=== PATIENT | female | born 2000 | race Two or more races ===

== ENCOUNTER 2024-09-08 17:03 | Emergency (ER) | payer MEDICAID, SELFPAY ==
[2024-09-08 17:13] VITALS: BP 128/63; PULSE 86; RESP 16; TEMP 36.8; O2SAT 96; BMI 24.2
--- NOTE | 2024-09-08 17:21 | XR_ITS ---
Examination: CT brain head without contrast. 2-D sagittal coronal reconstructions Date and time of exam:September 08, 2024 1821 hrs. Indications: Onset headache dizziness beginning 5 days ago CTDI: vol (mGy):48.5 DLP: (mGycm):962 Technique: Multiple CT axial sections of the brain have been obtained, 5 mm slice thickness. Contrast has not been administered. 2-D sagittal, coronal reconstructions have been obtained Low dose protocols were performed. One or more of the following dose reduction techniques were used; automated exposure control, adjustment of the mA and/or KV according to patient size, use of iterative reconstruction technique. Findings: No significant ventricular enlargement. Intra-axial or extra-axial hemorrhage density is not seen. No mass effect or midline shift Basal cisterns are not remarkable. Fourth ventricle is midline. Cranial vault intact. Impression: Negative for acute hemorrhage, mass effect or midline shift Advise clinical correlation and follow-up accordingly
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
[2024-09-08 20:10] VITALS: BP 116/76; PULSE 78; RESP 18; TEMP 36.7; O2SAT 98
== END 2024-09-08 20:10 | disposition home or self-care (01) ==
PROVIDERS: Emergency Provider Emergency Medicine; PCP Family Medicine
DX: R51.9 Headache, unspecified (principal)
CPT/HCPCS: 70450; 99284

== ENCOUNTER 2024-09-12 20:22 | Emergency (ER) | payer OTHER, SELFPAY ==
[2024-09-12 20:23] VITALS: BMI 24.0
[2024-09-12 20:39] VITALS: BP 136/91; PULSE 75; RESP 16; TEMP 36.9; O2SAT 99
--- NOTE | 2024-09-12 20:54 | EDNOTE_ITS ---
<Statement entered by Fara Butterfield MD - 09/12/24 23:41> As co-signing physician, I was present and available for consult prn. I concur with the plan and care as documented by the midlevel provider. ED Wound/Laceration-RME/HPI General Chief Complaint: Wound/Laceration Stated Complaint: Lac to Left 1st digit at work Time Seen by Provider: 09/12/24 20:51 Arrival date/time: 09/12/24 20:22 RME / HPI RME / HPI narrative: 23-year-old female patient came in for evaluation regarding laceration to the left thumb palmar aspect incident happened earlier today while at work accidentally cut herself with a knife resulting to her 1 cm gaping laceration, left thumb palmar aspect. Able to bend and extend the finger without any limitation. Tetanus vaccination is up-to-date Related Data Previous Rx's ?Medication ?Instructions ?Recorded ibuprofen 600 mg tablet 600 mg PO Q8H PRN pain #30 t abs 09/12/24 Allergies Allergy/AdvReac Type Severity Reaction Status Date / Time NKA* Allergy Uncoded 09/08/24 17:07 Review of Systems Review of Systems Narrative Review of Systems: Review of system reviewed and within normal limits except mentioned in HPI ED Exam Narrative Physical exam: VITAL SIGNS: Reviewed. GENERAL APPEARANCE: Alert and interactive, follows commands, no acute distress, HEAD AND FACE: Non-traumatic. ENT: PERRL, pink conjunctivitis, eyelid no trauma, Mucous membrane moist. NECK: Supple, nontender, no nuchal rigidity. RECTAL: Deferred. GENITAL: Deferred. NEUROLOGICAL: Gross motor function intact sensory function intact, Appropriate for age. MUSCULOSKELETAL: low back nontender, full range of motion. EXTREMITIES: 1 cm gaping laceration, left thumb palmar aspect, full range of motion. SKIN: Color pink, dry, no rash, no lacerations, no abrasions, no contusions. LYMPHATICS: Deferred. Course Quality Measures none Orders Category Date Time Status Set Up Suture Tray STAT Care 09/12/24 20:51 Active Wound Care NOW Care 09/12/24 20:51 Active Tet,Diphth,Pertuss(Acell)-Tdap [Boostrix Vacc] Med 09/12/24 20:51 Discontinued 0.5 ml IMI .ONCE ONE Vital Signs Vital signs: Vital Signs Temperature 98.5 F 09/12/24 20:39 Pulse Rate 75 09/12/24 20:39 Respiratory Rate 16 09/12/24 20:39 Blood Pressure 136/91 H 09/12/24 20:39 Pulse Oximetry (%) 99 09/12/24 20:39 Oxygen Delivery Method Room Air 09/12/24 20:39 Procedures -ED Laceration Laceration 1: Site: other (Left thumb) Size (cm): 1 Description: linear Depth: simple, single layer Local Anesthetic: lidocaine 1% Amount of anesthesia used (mL): 2 Pre-repair: wound explored and irrigated extensively Skin layer closed with: nylon Size (cm): 5-0 Number of sutures: 3 Technique: simple, interrupted Wound / Laceration MDM Narrative MDM Narrative:: 23-year-old female patient came in for evaluation regarding laceration to the left thumb palmar aspect incident happened earlier today while at work accidentally cut herself with a knife resulting to her 1 cm gaping laceration, left thumb palmar aspect. Able to bend and extend the finger without any limitation. Tetanus vaccination is up-to-date Repair and suturing was advised see procedure note Patient data External records reviewed:: None Clinical information provided by:: patient Social determinants that could affect healthcare access:: none Patient has the following chronic illnesses:: None How is presenting disease/condition affected by chronic disease/condition?: no chronic disease Evaluation data The following diagnostics were reviewed and interpreted by me:: other (specify) (none) Lab and/or radiology exams considered but not ordered:: none Interpretation Summary: osbaldo Medications / Prescriptions Medications or Prescriptions considered but not ordered:: None Medication administrations:: Medication Administration History Discontinued Medications Diphtheria/Tetanus/Acell Pertussis (Diphth,Pertuss(Acell),Tet Vac 0.5 Ml Syr) 0.5 ml IMi .ONCE ONE Stop: 09/12/24 20:52 Tdap Consultations Consultation(s) initiated? (list below): No Diagnosis Wound Differential Diagnosis: laceration, abrasion and avulsion of skin Most likely diagnosis given after review of the tests above:: Finger laceration Admission Indicated Admission indicated?: not indicated Admission Request Was there a request for admission?: No Disposition Plan Disposition Plan: Discharge Discharge Attestation Discharge Attestation: The patient was given an opportunity to ask questions and understood the discharge instructions. Discharge instructions specifically effects, indications for sooner follow up or return to the emergency department, and the expected course of current diagnosis. Patient condition: Stable Discharge Plan Plan Patient Disposition: HOME (Self Care) Disposition Comment: stable Prescriptions/Referrals Prescriptions/Med Rec: New ibuprofen 600 mg tablet 600 mg PO Q8H PRN (Reason: pain) Qty: 30 0RF Problem List Clinical Impression: Finger laceration Patient/Caregiver Discharge Instructions Discharge Activity: activity as tolerated Education Materials: ED Laceration: All Closures Additional Instructions: Thank you for the opportunity for serving you today. You are stable for discharged . 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
[2024-09-12] MEDS: DIPHTH,PERTUSS(ACELL),TET VAC 0.5 ML SYR IMi (21:22)
== END 2024-09-12 21:39 | disposition home or self-care (01) ==
LOC: SERX 21:46
PROVIDERS: Emergency Provider Emergency Medicine
DX: S61.012A Laceration without foreign body of left thumb without damage to nail, initial encounter (principal); Z23 Encounter for immunization; W26.0XXA Contact with knife, initial encounter; Y93.89 Activity, other specified; Y99.0 Civilian activity done for income or pay
CPT/HCPCS: 12001; 90471; 90715; 99283

== ENCOUNTER 2024-09-20 14:49 | Emergency (ER) | payer MEDICAID, SELFPAY ==
[2024-09-20 14:50] VITALS: BMI 24.0
[2024-09-20 15:06] VITALS: BP 126/84; PULSE 93; RESP 16; TEMP 36.9; O2SAT 99
--- NOTE | 2024-09-20 15:11 | EDNOTE_ITS ---
ED General RME/HPI General Chief complaint: General Adult/Misc Complain Stated complaint: L) THUMB STITCH REMOVAL Time Seen by Provider: 09/20/24 15:09 Arrival date/time: 09/20/24 14:49 23 year old female present to emergency room with c/o of left thumb suture removal. pt report had suture placed 1 week ago. typically 10-14 days when suture can be taken out. LOCATION: thumb SEVERITY: Symptoms are described as being severe with limitations on activities of daily living QUALITY: Symptoms are described as being dull or achy DURATION/TIMING: The symptoms started approximately 7 days ago . ASSOCIATED SYMPTOMS: The patient is unable to identify any other associated symptoms. MODIFYING FACTORS: The patient is unable to identify any alleviating or aggravating symptoms. PERTINENT ROS: no fevers, no headache, no neck or chest pain, no unexplained nausea or vomiting, no focal neurological deficits REVIEW OF SYSTEMS: See History of Present Illness - with the exception of those mentioned in the history of present illness, all other systems reviewed and reported as negative GENERAL: In general the patient is awake, interactive, in an emergency department gurney. HEAD/EYES/EARS/NOSE/THROAT: normo-cephalic, atraumatic, mucus membranes are moist, anicteric, palpebral conjunctiva is pink, trachea is midline. BACK: normal range of motion without pain. NEUROLOGICAL: cranio-facial features are symmetric, moves all four extremities equally without obvious limitations or weakness. EXTREMITY: left distal thumb 3 intact suture, no sign of infection or discharge. no tenderness to palpation over the long bones or large joints of the bilateral upper and lower extremities, no joint swelling, no joint erythema, no signs of trauma, no unilateral leg swelling and no peripheral edema. SKIN: warm, dry, well-perfused, no jaundice, no rash, no telangiectasias or petechia. PSYCH: calm, cooperative, no evidence of psychosis or agitation Related Data Previous Rx's ?Medication ?Instructions ?Recorded ibuprofen 600 mg tablet 600 mg PO Q8H PRN pain #30 t abs 09/12/24 Allergies Allergy/AdvReac Type Severity Reaction Status Date / Time NKA* Allergy Uncoded 09/20/24 14:52 Course Course Course Narrative: advised pt to return in 4 days for suture removal removing now can cause the wound to re open. Quality Measures none Vital Signs Vital signs: Vital Signs Temperature 98.5 F 09/20/24 15:06 Pulse Rate 93 09/20/24 15:06 Respiratory Rate 16 09/20/24 15:06 Blood Pressure 126/84 09/20/24 15:06 Pulse Oximetry (%) 99 09/20/24 15:06 Oxygen Delivery Method Room Air 09/20/24 15:06 [facility] Patient data External records reviewed:: None Clinical information provided by:: patient Social determinants that could affect healthcare access:: none Patient has the following chronic illnesses:: none How is presenting disease/condition affected by chronic disease/condition?: no chronic disease Evaluation data The following diagnostics were reviewed and interpreted by me:: other (specify) (none ) Lab and/or radiology exams considered but not ordered:: n/a Interpretation Summary: n/a Medications Medications considered but not ordered:: n/a Medication administrations:: n/a Consultations Consultation(s) initiated? (list below): No Diagnosis Differential Diagnosis ED Complaint MDM: wound check Most likely diagnosis given after review of the tests above:: wound check Admission Indicated Admission indicated?: not indicated Explain why admission is indicated or not indicated:: n/a Admission Request Was there a request for admission?: No Disposition Plan Disposition Plan: Discharge Discharge Attestation Discharge Attestation: The patient and all family members were given an opportunity to ask questions and understood the discharge instructions. Discharge instructions specifically effects, indications for sooner follow up or return to the emergency department, and the expected course of current diagnosis. Patient condition: Stable Medical Decision Making Differential Diagnosis Differential Diagnosis: wound check Discharge Plan Plan Patient Disposition: HOME (Self Care) Health Concerns: return to ED in 4 days for suture removal. Prescriptions/Referrals Prescriptions/Med Rec: No Action ibuprofen 600 mg tablet 600 mg PO Q8H PRN (Reason: pain) Qty: 30 0RF Problem List Clinical Impression: Encounter for wound re-check Patient/Caregiver Discharge Instructions Education Materials: ED Wound Care Print Language: Citizen Of [place] Stand Alone Forms: [employer] Award Info., Patient Portal Info Letter
== END 2024-09-20 15:15 | disposition home or self-care (01) ==
LOC: SERX 15:15
PROVIDERS: Emergency Provider Emergency Medicine; PCP Family Medicine
DX: Z48.02 Encounter for removal of sutures (principal)
CPT/HCPCS: 99281

== ENCOUNTER 2024-10-04 15:05 | Emergency (ER) | payer MEDICAID, SELFPAY ==
--- NOTE | 2024-10-04 15:35 | PD.EDWOUND ---
ED Wound/Laceration-RME/HPI General Chief Complaint: Wound Recheck / Suture Removal Stated Complaint: SURTURE REMOVAL TO FINGER Time Seen by Provider: 10/04/24 15:06 Source: patient Arrival date/time: 10/04/24 15:05 23-year-old female with no known medical history presents to the emergency room with a chief complaint of suture removal to her laceration in her finger that occurred 2 weeks ago. Mode of arrival: ambulatory Limitations: no limitations Related Data Previous Rx's ?Medication ?Instructions ?Recorded ibuprofen 600 mg tablet 600 mg PO Q8H PRN pain #30 tabs 09/12/24 Allergies Allergy/AdvReac Type Severity Reaction Status Date / Time NKA* Allergy Uncoded 10/04/24 15:06 Past Medical History Social History SMOKING STATUS: Never smoker ED Exam General Limitations: Present no limitations General appearance: Present alert and in no apparent distress Head Head exam: Present atraumatic Eye Eye exam: Present normal appearance, PERRL and EOMI ENT ENT exam: Present normal exam, normal oropharynx and mucous membranes moist Neck Neck exam: Present normal inspection, full ROM and trachea midline Chest Chest inspection: Present normal inspection and symmetric chest wall rise Respiratory Respiratory exam: Present normal lung sounds bilaterally Cardiovascular Cardiovascular exam: Present regular rate, normal rhythm and normal heart sounds Abdominal Exam Abdominal exam: Present soft and normal bowel sounds Extremities Exam Extremities exam: Present normal inspection and full ROM Back Exam Back exam: Present normal inspection and full ROM Neurological Exam Neurological exam: Present alert, oriented X3 and CN II-XII intact Psychiatric Psychiatric exam: Present normal affect and normal mood Skin Skin exam: Present warm, dry, intact and normal color Course Quality Measures none Orders Category Date Time Status Suture / Staple Removal NOW Care 10/04/24 15:12 Active Wound / Laceration MDM Narrative MDM Narrative:: 23-year-old female with no known medical history presents to the emergency room with a chief complaint of suture removal to her laceration in her finger that occurred 2 weeks ago. Patient is hemodynamically stable and in no apparent distress 3 sutures were removed from the patient's left thumb. There were no signs of infection, there is no warmth to the area, no discharge. 3 sutures were removed in its entirety with no complications Patient was discharged and educated to follow-up with primary care provider in the next 24 to 48 hours and return to the emergency room for any evidence of worsening signs or symptoms Patient data External records reviewed:: [facility] previous records Clinical information provided by:: patient Social determinants that could affect healthcare access:: none Patient has the following chronic illnesses:: No chronic illness How is presenting disease/condition affected by chronic disease/condition?: no chronic disease Evaluation data The following diagnostics were reviewed and interpreted by me:: lab results and radiology exam(s) Lab and/or radiology exams considered but not ordered:: Labs and radiology exams considered and ordered Interpretation Summary: N/A Medications / Prescriptions Medications or Prescriptions considered but not ordered:: Medication not given Medication administrations:: Medication not given Consultations Consultation(s) initiated? (list below): No Diagnosis Wound Differential Diagnosis: other (Suture removal/infected suture removal) Most likely diagnosis given after review of the tests above:: Suture removal Admission Indicated Admission indicated?: not indicated Admission Request Was there a request for admission?: No Disposition Plan Disposition Plan: Discharge Discharge Attestation Discharge Attestation: The patient and all family members were given an opportunity to ask questions and understood the discharge instructions. Discharge instructions specifically effects, indications for sooner follow up or return to the emergency department, and the expected course of current diagnosis. Patient condition: Stable Discharge Plan Plan Patient Disposition: HOME (Self Care) Disposition Comment: Stable Prescriptions/Referrals Prescriptions/Med Rec: No Action ibuprofen 600 mg tablet 600 mg PO Q8H PRN (Reason: pain) Qty: 30 0RF Problem List Clinical Impression: Encounter for removal of sutures Patient/Caregiver Discharge Instructions Additional Instructions: For any evidence of worsening signs or symptoms return to the emergency room immediately Print Language: Citizen Of [place] Stand Alone Forms: [employer] Award Info., Patient Portal Info Letter JESSE/CARMELO Supervising Physician JESSE/CARMELO Supervising Physician: Dr. Garces
[2024-10-04 15:42] VITALS: BP 117/79; PULSE 80; RESP 16
== END 2024-10-04 16:09 | disposition home or self-care (01) ==
LOC: SERX 15:51
PROVIDERS: Emergency Provider Emergency Medicine
DX: Z48.02 Encounter for removal of sutures (principal)
CPT/HCPCS: 99282

== ENCOUNTER 2025-07-11 14:15 | Emergency (ER) | payer MEDICAID, SELFPAY ==
[2025-07-11 14:42] VITALS: BP 114/73; PULSE 93; RESP 16; TEMP 36.8; O2SAT 98; BMI 28.8
--- NOTE | 2025-07-11 15:37 | PD.EDHIP ---
Lower Extremity Injury RME/HPI General Chief Complaint: Dizziness Stated Complaint: DIZZY, NAUSEA, R) HIP PAIN, PREG 33WKS Time Seen by Provider: 07/11/25 15:05 Arrival date/time: 07/11/25 14:15 This is a 24-year-old female that is a 1 para 0. Patient states she is approximately 33 weeks . Patient states she is having a lot of right hip pain. Patient denies any trauma patient denies any fall. Patient denies any dysuria. Patient states throughout the she has been nauseous so that is not really new. Patient denies fever, chills, abdominal pain or any other symptoms. Patient states that at night sometimes she has back pain if she lays on her back too long. Patient has no other complaints otherwise. Related Data Previous Rx's ?Medication ?Instructions ?Recorded ibuprofen 600 mg tablet 600 mg PO Q8H PRN pain #30 tabs 09/12/24 Allergies Allergy/AdvReac Type Severity Reaction Status Date / Time No Known Allergies Allergy Verified 07/11/25 14:17 Review of Systems Review of Systems Systems Reviewed: All systems reviewed, normal except as documented Past Medical History Social History SMOKING STATUS: Never smoker ED Exam Narrative Physical exam: VITAL SIGNS: Reviewed. GENERAL APPEARANCE: Alert and interactive, follows commands, no acute distress, HEAD AND FACE: Non-traumatic. ENT: PERRL, conjuctiva pink and clear, eyelid no trauma, Mucous membrane moist. NECK: Supple, nontender, no nuchal rigidity. CHEST: No tenderness, no crepitus, no paradoxical movement, no retractions. LUNGS: Clear, well ventilated, symmetric, no rales, no wheezing, no rhonchi, no stridor, good breath sounds bilaterally. HEART: Regular rate, regular rhythm, no murmur, no gallops. ABDOMEN: Soft, protrusion of her abdomen patient's approximately 33 weeks. NEUROLOGICAL: Gross motor function intact sensory function intact, Appropriate for age. MUSCULOSKELETAL: low back nontender, full range of motion. EXTREMITIES: No redness no swelling no skin breakdown on bilateral foot and leg. Distal neurovascular status intact bilateral foot SKIN: Color pink, dry Course Quality Measures none Orders Category Date Time Status Urinalysis, C/S if Indicated Stat Lab 07/11/25 16:04 Completed Urine Culture Stat Lab 07/11/25 16:04 Completed Acetaminophen Tab [Tylenol ES Tab] Med 07/11/25 15:29 Discontinued 1,000 mg PO X1 ONE Ondansetron Odt [Zofran Odt] Med 07/11/25 15:29 Discontinued 4 mg PO X1 ONE cefTRIAXone [Rocephin] 1,000 mg Med 07/11/25 17:33 Discontinued Lidocaine 1% Pf Vial 5ml [Xylocaine 1% Pf 5 ml] 2.1 ml IM X1 Vital Signs Vital signs: Vital Signs Temperature 98.3 F 07/11/25 14:42 Pulse Rate 93 07/11/25 14:42 Respiratory Rate 16 07/11/25 14:42 Blood Pressure 114/73 07/11/25 14:42 Pulse Oximetry (%) 98 07/11/25 14:42 Oxygen Delivery Method Room Air 07/11/25 14:42 Extremity Injury, Lower MDM Narrative MDM Narrative:: I talked to patient at length urinalysis shows leukocyte esterase RBCs white blood cells. Patient is having urinary frequency and urgency but not having any dysuria. I talked to patient about treating or just waiting for urine culture. Patient would like to treat the possible UTI we will give her a dose of Rocephin and send her home with Keflex. Patient told to follow-up with [facility] in 1 to 2 days. Come back to the emergency room symptoms change or worsen. Patient verbalized understanding and feels comfortable plan of care Dry Patient data External records reviewed:: [facility] [place] previous records Clinical information provided by:: patient Social determinants that could affect healthcare access:: none Patient has the following chronic illnesses:: none How is presenting disease/condition affected by chronic disease/condition?: no chronic disease Evaluation data The following diagnostics were reviewed and interpreted by me:: lab results Lab and/or radiology exams considered but not ordered:: none Interpretation Summary: see note Medications / Prescriptions Medications or Prescriptions considered but not ordered:: none Medication administrations:: Medication Administration History Discontinued Medications Acetaminophen (Acetaminophen 500 Mg Tablet) 1,000 mg PO X1 ONE Stop: 07/11/25 15:30 Last Admin: 07/11/25 15:59 Dose: 1,000 mg Documented By: YESICA Ceftriaxone Sodium 1,000 mg/ (Lidocaine HCl 2.1 ml) 0 mg IM X1 ONE Stop: 07/11/25 17:34 Last Admin: 07/11/25 17:55 Dose: 1,000 mg Documented By: QUAN Ondansetron HCl (Ondansetron Odt 4 Mg Tabrap) 4 mg PO X1 ONE; Protocol Stop: 07/11/25 15:30 Last Admin: 07/11/25 15:59 Dose: 4 mg Documented By: YESICA see cathryn Consultations Consultation(s) initiated? (list below): No Diagnosis Most likely diagnosis given after review of the tests above:: see note Admission Indicated Admission indicated?: not indicated Admission Request Was there a request for admission?: No Disposition Plan Disposition Plan: Discharge Discharge Attestation Discharge Attestation: The patient and all family members were given an opportunity to ask questions and understood the discharge instructions. Discharge instructions specifically effects, indications for sooner follow up or return to the emergency department, and the expected course of current diagnosis. Patient condition: Stable Discharge Plan Plan Patient Disposition: HOME (Self Care) Patient condition on transfer: Stable Prescriptions/Referrals Prescriptions/Med Rec: No Action ibuprofen 600 mg tablet 600 mg PO Q8H PRN (Reason: pain) Qty: 30 0RF Referrals: Vandana Foster CNM [Primary Care Provider, Obstetrics] - In 1 week Problem List Clinical Impression: UTI (urinary tract infection), Acute hip pain Patient/Caregiver Discharge Instructions Discharge Activity: activity as tolerated Education Materials: ED CYSTITIS Female Adult Additional Instructions: Please follow-up with urine culture with primary provider. come back to the emergency room symptoms change or worsen. Print Language: Tuvaluan Stand Alone Forms: Shereen Award Info., Patient Portal Info Letter JESSE/CARMELO Supervising Physician BEST Supervising Physician: maria dolores
[2025-07-11] MEDS: ACETAMINOPHEN 500 MG TABLET 1000 MG PO (15:59)
[2025-07-11] MEDS: ONDANSETRON ODT 4 MG TABRAP PO (15:59)
[2025-07-11 16:09] LABS: Collection Type, Urine Voided
[2025-07-11 16:40] LABS: Bacteria,Urine Rare; Bilirubin,Urine Negative (Negative); Blood,Urine Negative (Negative); Clarity,Urine Turbid (Clear/Hazy); Color,Urine Yellow (Lt Yel-Yel); Culture Indicated,Urine Not Indicated; Glucose, Urine Trace (Negative); Ketones,Urine Negative (Negative); Leukocyte Esterase,Urine Positive (Negative); Nitrite,Urine Negative (Negative); PH,Urine 7.0 (5.0-7.0); Protein,Urine 2+ (Neg - Trace); RBC,Urine 5 /hpf (0-3); Specific Gravity,Urine 1.030 (1.001-1.035); Squamous Epithelial Cell,Urine 27 /hpf (0-5); Urobilinogen,Urine 2.0 mg/dL (0.0-1.0); WBC,Urine 8 /hpf (0-5)
[2025-07-11 18:07] VITALS: BP 125/74; PULSE 100; RESP 18; TEMP 37.1; O2SAT 100
== END 2025-07-11 18:08 | disposition home or self-care (01) ==
PROVIDERS: Nurse Practitioner Family; Emergency Provider Emergency Medicine; PCP Nurse Practitioner Women's Health
DX: O23.43 Unspecified infection of urinary tract in pregnancy, third trimester (principal); N39.0 Urinary tract infection, site not specified; O99.891 Other specified diseases and conditions complicating pregnancy; M25.551 Pain in right hip; Z3A.33 33 weeks gestation of pregnancy
CPT/HCPCS: 81001; 87086; 96372; 99282; J0696; J3490; Q0162; A9270